=== PATIENT | female | born 1960 | race Caucasian/White ===

== ENCOUNTER 2021-03-19 15:45 | Emergency (ER) | payer OTHER, SELFPAY ==
[2021-03-19 15:55] VITALS: BP 119/63; PULSE 62; TEMP 37.3; O2SAT 98
--- NOTE | 2021-03-19 16:09 | ED.GENADUL_ITS ---
Discharge Plan Disposition Patient Disposition: HOME Condition: Good Discharge Details Clinical Impression: Foot laceration Primary Care Provider: Ryan Shell ED Provider: Suzanne Sorensen Home Meds and New Rx's Prescriptions: New cephalexin 500 mg capsule 500 mg PO QID 5 Days Qty: 20 RF: 0 Continued Prilosec OTC 20 mg tablet,delayed release (DR/EC) 20 mg PO DAILY RF: 0 multivitamin Capsule 1 cap PO DAILY RF: 0 naproxen sodium [Aleve] 220 mg capsule 220 mg PO BID PRNRF: 0 Discharge Instructions Instructions: Laceration (ED) Additional Instructions: Keep wound clean, dry, covered. Monitor for signs of infection including redness, warmth, drainage, increased pain, fevers/chills. If you develop any of these or other new/worsening symptoms please seek care urgently once again. Please follow up with primary care at the end of the week for wound evaluation. Antibiotics for prophylaxis. Tylenol and/or Ibuprofen as needed for discomfort. Rest, ice, elevate. Use post operative shoe until reevaluated. Wound should be evaluated for suture removal in 2 weeks. Referrals: Ryan Shell DO [Primary Care Provider] - Medical Decision Making <Suzanne Sorensen DO - Last Filed: 03/19/21 22:54> 1600 -- Patient initially seen by me in the waiting room. On my brief assessment of patient in the waiting room, she stated she dropped a chain saw on her foot when it kicked back and cut through her boot down to her foot. She has a 2 cm laceration on the medial aspect overlying her first metatarsal. There are no obvious foreign bodies. Bleeding controlled. No bony deformity. A L foot xray order placed. Boostrix ordered. Care transitioned to GIOVANNY Vega due to high acuity in the ED. Please see her note for additional details and final disposition. Medical Records Medical records reviewed: Yes I reviewed the patient's medical records. <GIOVANNY Painter - Last Filed: 03/20/21 01:37> Care transitioned to myself from Dr. Sorensen d/t acuity of the department. Please see her initial note regarding history, presentation and exam. In brief, patient is a pleasant 60-year-old female who was working with a chainsaw today when the chainsaw kicked cutting the left foot through her boot. She denies other injury the time of the incident. Denies any numbness or tingling. Tetanus is not up-to-date, will update this now. There was concern for potential bony involvement, x-ray was obtained. XR reviewed by radiologist: FINDINGS: Bones/joints: No acute fracture or focal osseous destruction is identified. There are no subluxations. The joint spaces are maintained without degenerative changes. Osseous mineralization is normal. There are no inflammatory osseous erosive changes. The plantar arch is maintained. There is a moderate plantar calcaneal spur. Soft tissues: There is soft tissue irregularity dorsal medial to the head of the 1st metatarsal, suggesting focal soft tissue laceration. No radiopaque soft tissue foreign bodies identified. IMPRESSION: 1. Findings suggest soft tissue laceration dorsal and medial to the 1st metatarsal head. 2. No radiopaque foreign body identified. 3. No radiographic evidence of acute osseous injury. Discussed findings with the patient. She and I discussed her/benefits as well as expected procedural steps associated with closure. She voiced understanding and wishes to proceed. Please see procedure note. Patient tolerated this well. Will update tetanus. wi ll place in postop shoe. RICE. Abx. Due to the nature of the wound, wound edges were loosely reapproximated using simple interrupted as well as horizontal mattresses sutures. Bulky dressing was applied. Patient will be placed in a postop shoe to help prevent any excess strain being placed on the wound. Strict return precautions were discussed. I have asked that she follow-up with primary care for wound check at the end of the week. All of her questions and concerns were addressed and she is in agreement this plan. HPI <Suzanne Sorensen, - Last Filed: 03/19/21 22:54> General Mode of arrival: ambulatory . Date/Time Provider Initiated Documentation: 03/19/21 16:08 . Limitations to Documentation: no limitations . Information obtained by: patient . HPI Narrative: Pt is a 60yo F who presents to the ED with complaint of left foot laceration after dropping a chain saw on her foot prior to arrival. Patient states she was cutting a tree when the chainsaw kicked back and hit her left foot. She states the chain saw cut through her shoe down into her foot. She is unsure of her tetanus status. She denies any other injuries. Related Data Home Medications Medication Instructions Recorded Confirmed multivitamin 1 cap PO DAILY 06/03/19 06/03/19 naproxen sodium 220 mg capsule 220 mg PO BID PRN 06/03/19 06/03/19 omeprazole magnesium 20 mg 20 mg PO DAILY 06/03/19 06/03/19 tablet,delayed release cephalexin 500 mg PO QID 5 Days #20 cap 03/19/21 Previous Rx's Medication Instructions Recorded cephalexin 500 mg PO QID 5 Days #20 cap 03/19/21 Allergies Allergy/AdvReac Type Severity Reaction Status Date / Time No Known Allergies Allergy Verified 05/28/19 10:39 General Stated Complaint: Laceration KG: 3 Review of Systems <Suzanne Sorensen DO - Last Filed: 03/19/21 22:54> All systems reviewed & are unremarkable except as noted in HPI and below PFSH <Suzanne Sorensen DO - Last Filed: 03/19/21 22:54> Medical History (Updated 03/19/21 @ 18:39 by GIOVANNY Painter) Ductal carcinoma in situ of right breast Medial meniscus tear Right Knee; surgical repair 06/25/2013 Primary malignant neoplasm of female breast Right sciatic nerve pain 2012 Surgical History (Updated 03/19/21 @ 16:10 by Suzanne Sorensen DO) H/O section History of knee surgery History of lumpectomy Family History (Updated 05/11/19 @ 10:51 by Solange Mueller) Aunt Breast cancer Brother Diabetes Father , Age 69 Dementia Paternal Grandfather , Age 64 Myocardial infarction Maternal Grandfather , Age 65 Myocardial infarction Maternal Grandmother , Age 50- Cancer No problems noted. 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 Do you need help understanding health information?: Rarely current occupation: Retired Sexually active: Yes Do you think of yourself as: straight/heterosexual Current gender identity: female What is your relationship status?: Panel score (0-1 are the most socially isolated patients): 1 What type of physical activity do you participate in: running Duration: 30-45 minutes/day Frequency: daily Exam <Suzanne Sorensen DO - Last Filed: 03/19/21 22:54> Const General: cooperative, healthy appearing and no acute distress HENMT Head: normal to inspection Mouth: oral mucosae normal Eyes General: appearance normal, both eyes and all related structures Neck Neck: normal visual inspection Resp Effort & Inspection: normal respiratory effort and able to speak in complete sentences Cardio Rate: regular rate Skin General skin exam: no rashes or lesions noted Neuro General: patient alert, patient awake and patient oriented x3 Motor: muscle tone normal throughout Extrem Ankle/foot/toe images: 1. Patient has a jagged laceration into the subcutaneous tissue along this area 3 cm in length. Along the dorsal aspect, I am concerned that there appears to be some missing tissue although wound edges are able to be reapproximated. No active bleeding. Sensation is intact distally. Brisk capillary refill. Good range of motion of the toe. Other: On brief exam of foot in waiting room, 2 cm straight laceration noted extending through dermis on medial aspect of foot overlying first metatarsal. No obvious foreign bodies noted. No other bony deformity noted. Bleeding controlled. Psych Appearance: grossly normal Affect: normal affect <GIOVANNY Painter - Last Filed: 03/20/21 01:37> Extrem Ankle/foot/toe images: 1. Patient has a jagged laceration into the subcutaneous tissue along this area 3 cm in length. Along the dorsal aspect, I am concerned that there appears to be some missing tissue although wound edges are able to be reapproximated. No active bleeding. Sensation is intact distally. Brisk capillary refill. Good range of motion of the toe. Course <Suzanne Sorensen DO - Last Filed: 03/19/21 22:54> Vital Signs Vital signs: Vital Signs Temperature 99.1 F 03/19/21 15:55 Pulse 62 03/19/21 15:55 Blood Pressure 119/63 03/19/21 15:55 Pulse Oximetry 98 03/19/21 15:55 Temperature 99.1 F 03/19/21 15:55 Temperature Source Temporal Artery Scan 03/19/21 15:55 Pulse 62 03/19/21 15:55 Blood Pressure 119/63 03/19/21 15:55 Blood Pressure Position Sitting 03/19/21 15:55 Pulse Oximetry 98 03/19/21 15:55 Oxygen Delivery Method Room Air 03/19/21 15:55 Oxygen Flow Rate 0 03/19/21 15:55 Pain Level 4 03/19/21 15:55 <GIOVANNY Painter - Last Filed: 03/20/21 01:37> Laceration Laceration 1: Site: lower extremity Side (If applicable): right Size (cm): 4 Description: irregular Depth: simple, single layer Local Anesthetic: Lidocaine 1% Amount of anesthesia used (mL): 4 Pre-repair: wound explored, irrigated extensively and deep structures intact Skin layer closed with: nylon Size (cm): 5-0 Number of sutures: 3 Technique: simple, interrupted and horizontal mattress
--- NOTE | 2021-03-19 17:00 | DI.RAD_ITS ---
Exam(s) XR FOOT LT COMPLETE EXAM: XR FOOT LT COMPLETE CLINICAL HISTORY: chainsaw to L foot, r/o fx/fb. TECHNIQUE: 2D digital imaging was performed. COMPARISON: No exams were available for comparison FINDINGS: BONES: No acute fracture is present. No bony destructive lesion is seen. JOINTS: No dislocation present. SOFT TISSUE: Gauze overlying the medial foot. Soft tissue defect near the head of the 1st metatarsal . No foreign body IMPRESSION: Medial soft tissue laceration. No fracture or foreign body. DATA REPOSITORY: RADIATION DOSE DELIVERED:
--- NOTE | 2021-03-19 17:42 | DI.VRAD_ITS ---
PROCEDURE INFORMATION: Exam: XR Left Foot Exam date and time: 03/19/2021 5:04 PM Age: 60 years old Clinical indication: Injury or trauma; Laceration; Left; Foreign body involvement not specified; Injury date: 03/19/21; Injury details: Chainsaw injury medial foot TECHNIQUE: Imaging protocol: XR Left foot. Views: 3 or more views. COMPARISON: No relevant prior studies available. FINDINGS: Bones/joints: No acute fracture or focal osseous destruction is identified. There are no subluxations. The joint spaces are maintained without degenerative changes. Osseous mineralization is normal. There are no inflammatory osseous erosive changes. The plantar arch is maintained. There is a moderate plantar calcaneal spur. Soft tissues: There is soft tissue irregularity dorsal medial to the head of the 1st metatarsal, suggesting focal soft tissue laceration. No radiopaque soft tissue foreign bodies identified. IMPRESSION: 1. Findings suggest soft tissue laceration dorsal and medial to the 1st metatarsal head. 2. No radiopaque foreign body identified. 3. No radiographic evidence of acute osseous injury. Dictated and Authenticated by: Marvin Cox MD. Ordering:MADALYN Palacios MD
[2021-03-19] MEDS: Lidocaine 1% Multi-Dose 50 ML VIAL IJ (18:57)
== END 2021-03-20 19:00 | disposition home or self-care (01) ==
PROVIDERS: Emergency Provider Physician Assistant; PCP Family Medicine
DX: S91.312A Laceration without foreign body, left foot, initial encounter (principal); W29.3XXA Contact with powered garden and outdoor hand tools and machinery, initial encounter
CPT/HCPCS: 12002; 90471; 99281; 73630

== ENCOUNTER 2021-04-02 10:06 | Emergency (ER) | payer OTHER, SELFPAY ==
[2021-04-02 10:09] VITALS: BP 127/64; PULSE 54; RESP 16; TEMP 37; O2SAT 100
--- NOTE | 2021-04-02 10:16 | W.ED.GENAD ---
Discharge Plan Disposition Patient Disposition: HOME Condition: Stable Discharge Details Clinical Impression: Visit for suture removal Primary Care Provider: Ryan Shell ED Provider: John Price Home Meds and New Rx's Prescriptions: Continued Prilosec OTC 20 mg tablet,delayed release (DR/EC) 20 mg PO DAILY RF: 0 multivitamin Capsule 1 cap PO DAILY RF: 0 naproxen sodium [Aleve] 220 mg capsule 220 mg PO BID PRNRF: 0 Discharge Instructions Additional Instructions: Sutures removed without difficulty. Keep the area clean and dry. Please watch for new or worsening symptoms and return to the ER for any concerns. Medical Decision Making 60-year-old female presents for suture removal. Sutures placed on 03-19-21. Laceration is well approximated and well-healing, no signs of secondary infection. Removed 3 sutures without difficulty. Patient tolerated well Medical Records Medical records reviewed: Yes I reviewed the patient's medical records. HPI General Mode of arrival: ambulatory. Date/Time Provider Initiated Documentation: 04/02/21 10:06. Limitations to Documentation: no limitations. Information obtained by: patient. HPI Narrative: This is a 60-year-old female presenting for evaluation to have sutures removed from her left foot. Patient states that she had the laceration repaired on 03-19-21. Has been doing well since then. Denies any pain, fever, discharge. Denies numbness, tingling, weakness. No additional questions or concerns at this time Related Data Home Medications Medication Instructions Recorded Confirmed multivitamin 1 cap PO DAILY 06/03/19 04/02/21 naproxen sodium 220 mg capsule 220 mg PO BID PRN 06/03/19 04/02/21 omeprazole magnesium 20 mg 20 mg PO DAILY 06/03/19 04/02/21 tablet,delayed release Allergies Allergy/AdvReac Type Severity Reaction Status Date / Time No Known Allergies Allergy Verified 05/28/19 10:39 General Stated Complaint: Recheck KG: 5 Review of Systems Constitutional Constitutional: Denies fever(s) Musculoskeletal Musculoskeletal: Denies arthralgias, Denies numbness, Denies stiffness and Denies tingling Integumentary/Breasts Skin/Breast: Denies erythema Neurologic Neurologic: Denies numbness and Denies tingling [facility] Medical History Ductal carcinoma in situ of right breast Medial meniscus tear Right Knee; surgical repair 06/25/2013 Primary malignant neoplasm of female breast Right sciatic nerve pain 2012 Surgical History H/O section History of knee surgery History of lumpectomy Family History Aunt Breast cancer Brother Diabetes Father , Age 69 Dementia Paternal Grandfather , Age 64 Myocardial infarction Maternal Grandfather , Age 65 Myocardial infarction Maternal Grandmother , Age 50- Cancer No problems noted. 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 Do you need help understanding health information?: Rarely current occupation: Retired Sexually active: Yes Do you think of yourself as: straight/heterosexual Current gender identity: female What is your relationship status?: Panel score (0-1 are the most socially isolated patients): 1 What type of physical activity do you participate in: running Duration: 30-45 minutes/day Frequency: daily Do you feel safe at home: Yes Do you feel safe in your relationship?: Yes Exam Const General: cooperative, healthy appearing, comfortable and no acute distress Orientation: alert and awake [facility] Head: normal to inspection, normocephalic and atraumatic Eyes General: appearance normal, both eyes and all related structures Conjunctivae: conjunctivae normal Neck Neck: normal visual inspection, trachea midline and supple Resp Effort & Inspection: normal respiratory effort and able to speak in complete sentences Cardio Rate: regular rate Rhythm: regular rhythm Skin General skin exam: no rashes or lesions noted Neuro General: patient alert, patient awake, moves all extremities and no focal motor deficits Cognition: normal cognition Speech: speech normal Gait: normal gait Sensory Exam: no sensory deficits noted Extrem Other: Left foot medial aspect over the first MTP joint there is a well-healing laceration approximated with 3 sutures. Neuro, vascular, tendon intact. No discharge. No discomfort to palpation. No evidence of secondary infection. Normal dorsalis pedal pulse and capillary refill Psych Appearance: grossly normal Mental Status: mental status grossly normal Course Vital Signs Vital signs: Vital Signs Temperature 37.0 C 04/02/21 10:09 Pulse 54 L 04/02/21 10:09 Respiratory Rate 16 04/02/21 10:09 Blood Pressure 127/64 04/02/21 10:09 Pulse Oximetry 100 04/02/21 10:09 Temperature 37.0 C 04/02/21 10:09 Temperature Source Temporal Artery Scan 04/02/21 10:09 Pulse 54 L 04/02/21 10:09 Respiratory Rate 16 04/02/21 10:09 Respiratory Effort 04/02/21 10:13 Blood Pressure 127/64 04/02/21 10:09 Blood Pressure Position Sitting 04/02/21 10:09 Pulse Oximetry 100 04/02/21 10:09 Oxygen Delivery Method Room Air 04/02/21 10:09 Oxygen Flow Rate 0 04/02/21 10:09 Pain Level 3 04/02/21 10:09
== END 2021-04-02 10:35 | disposition home or self-care (01) ==
PROVIDERS: Emergency Provider Physician Assistant; PCP Family Medicine
DX: S91.312D Laceration without foreign body, left foot, subsequent encounter (principal); W29.3XXD Contact with powered garden and outdoor hand tools and machinery, subsequent encounter; Z48.02 Encounter for removal of sutures

== ENCOUNTER 2023-03-14 15:25 | Outpatient (REF) | payer OTHER, SELFPAY | END 2023-03-14 15:26 | disposition home or self-care (01) | LOC: LBN 15:25 | PROVIDERS: PCP Family Medicine; Visit Provider Nurse Practitioner Family | DX: L08.89 Other specified local infections of the skin and subcutaneous tissue; W54.0XXD Bitten by dog, subsequent encounter; S81.031D Puncture wound without foreign body, right knee, subsequent encounter | CPT/HCPCS: 87077; 87070; 87205 ==

== ENCOUNTER 2023-03-17 12:26 | Emergency (ER) | payer OTHER, SELFPAY ==
[2023-03-17 12:32] VITALS: BP 149/64; PULSE 42; RESP 14; O2SAT 100
--- NOTE | 2023-03-17 12:44 | ED.GENADUL_ITS ---
Discharge Plan Disposition Patient Disposition: Home Condition: Good Discharge Details Clinical Impression: Rabies, need for prophylactic vaccination against Primary Care Provider: Ryan Shell ED Provider: Klaudia Maddox Home Meds and New Rx's Prescriptions: Continued multivitamin Capsule 1 cap PO DAILY naproxen sodium [Aleve] 220 mg capsule 220 mg PO BID PRN amoxicillin-pot clavulanate 875-125 mg tablet 1 tab PO BID 10 Days Qty: 20 0RF Rx Instructions: Take with meal. Take 1 pill every 12 hour mupirocin 2 % ointment 1 applic topical BID Qty: 15 0RF Rx Instructions: apply twice daily for 7 days Discharge Instructions Instructions: Rabies Vaccine (By injection), Rabies Immune Globulin (By injection) Additional Instructions: Return to the infusion center at the hospital as instructed for your subsequent rabies vaccines. Return to ED for any questions or concerns. Return also if the area behind your knee does not continue to improve. Medical Decision Making The rabies series is gone from 5 shots down to 4 and this was confirmed on the CDC website. No globulin will be given just once. All of this was discussed with the patient. She was set up to go to the infusion area for her subsequent shots. She will return for fever, spreading redness, any other concerns. HPI General Date/Time Provider Initiated Documentation: 03/17/23 12:39 . HPI Narrative: Patient reports that she was jogging last when a dog ran out and bit her behind her knee. She went to urgent care and was placed on Augmentin. She had a recheck this morning and was referred to the ED for rabies vaccination. Patient states that she is able to move her knee without difficulty and it does not appear that the joint was penetrated. She is a single decent sized puncture wound in the crease of her right knee. There is minimal erythema and no warmth in the area. She says she is over the whole thing and just wants to get her vaccination and move on. She only found out this morning that the dog had not had a complete series of rabies shots. She was told that the dog is being put down. It is mild at this time. She is little bit sore. Pain does not radiate anywhere. She has had no fever, shaking chills, difficulty bending her knee, red streaks, or other concerns. Related Data Home Medications Medication Instructions Recorded Confirmed multivitamin 1 cap PO DAILY 06/03/19 03/17/23 naproxen sodium 220 mg capsule 220 mg PO BID PRN 06/03/19 03/17/23 (Aleve) amoxicillin 875 mg-potassium 1 tab PO BID 10 days #20 tabs 03/14/23 03/17/23 clavulanate 125 mg tablet mupirocin 2 % topical ointment 1 applic topical BID #15 grams 03/17/23 03/17/23 Previous Rx's Medication Instructions Recorded amoxicillin 875 mg-potassium 1 tab PO BID 10 days #20 tabs 03/14/23 clavulanate 125 mg tablet mupirocin 2 % topical ointment 1 applic topical BID #15 grams 03/17/23 Allergies Allergy/AdvReac Type Severity Reaction Status Date / Time No Known Allergies Allergy Verified 03/17/23 12:37 General Stated Complaint: AnimalBite KG: 3 Review of Systems Musculoskeletal Musculoskeletal: Reports other (Bite behind right knee) Integumentary/Breasts Skin/Breast: Reports other (No warmth or marked erythema behind right knee) Neurologic Neurologic: Reports other (No numbness) PFSH All Active Problems Rabies, need for prophylactic vaccination against (Acute) Foot laceration (Acute) Visit for suture removal (Acute) Primary malignant neoplasm of female breast (Acute) Ductal carcinoma in situ of right breast (Acute) Medical History Medial meniscus tear Right Knee; surgical repair 06/25/2013 Right sciatic nerve pain 2012 Surgical History H/O section History of knee surgery History of lumpectomy Family History Aunt Breast cancer Brother Diabetes Father , Age 69 Dementia Paternal Grandfather , Age 64 Myocardial infarction Maternal Grandfather , Age 65 Myocardial infarction Maternal Grandmother , Age 50- Cancer No problems noted. 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 Do you need help understanding health information?: Rarely current occupation: Retired Sexually active: Yes Do you think of yourself as: straight/heterosexual Current gender identity: female What is your relationship status?: Panel score (0-1 are the most socially isolated patients): 1 What type of physical activity do you participate in: running Duration: 30-45 minutes/day Frequency: daily Do you feel safe at home: Yes Do you feel safe in your relationship?: Yes Exam Const General: healthy appearing, no acute distress, well developed and well groomed Orientation: oriented x3 HENMT Head: normocephalic and atraumatic Eyes Conjunctivae: conjunctivae normal Neck Neck: supple Resp Effort & Inspection: normal respiratory effort Skin General skin exam: other (PWD) Trauma: puncture (Behind right knee) Extrem Right lower extremity: full ROM and knee (PW posteriorly 0.5 cm, no warmth or pronounced erythema, FROM) Course Vital Signs Vital signs: Vital Signs Pulse 42 L 03/17/23 12:32 Respiratory Rate 14 03/17/23 12:32 Blood Pressure 149/64 H 03/17/23 12:32 Pulse Oximetry 100 03/17/23 12:32 Pulse 42 L 03/17/23 12:32 Respiratory Rate 14 03/17/23 12:32 Respiratory Effort Normal 03/17/23 12:37 Blood Pressure 149/64 H 03/17/23 12:32 Blood Pressure Position Supine 03/17/23 12:32 Pulse Oximetry 100 03/17/23 12:32 Oxygen Delivery Method Room Air 03/17/23 12:32 Oxygen Flow Rate 0 03/17/23 12:32 Pain Level 5 03/17/23 12:32
--- NOTE | 2023-03-17 12:57 | NUR.NOTE ---
Nursing Note: Faxed to Infusion, rabies vaccine physician order.
[2023-03-17] MEDS: Rabies Immune Globulin 1,500 UNIT/5 ML VIAL 1320 UNITS IM (13:30)
--- NOTE | 2023-03-17 13:39 | NUR.NOTE ---
Addendum entered by Iris Leiva 03/18/23 09:36: Faxed to Infusion the new dates for the vaccinations. Addendum entered by Iris Leiva 03/17/23 13:50: March 20. March 24. March 31. Original Note: Nursing Note: Rabies vaccine orders: day 3 March 19, day 7 March 23 and day 14 March 30. Copy given to pt.
== END 2023-03-17 14:01 | disposition home or self-care (01) ==
PROVIDERS: Emergency Provider Emergency Medicine; PCP Family Medicine
DX: Z20.3 Contact with and (suspected) exposure to rabies (principal)
CPT/HCPCS: 90471; 99282; 90675

== ENCOUNTER 2023-03-18 01:02 | Outpatient (CLI) | payer OTHER, SELFPAY ==
--- NOTE | 2023-03-18 07:45 | DI.CT_ITS ---
Exam(s) CT LOWER EXTREMITY RT W EXAM: CT LOWER EXTREMITY RT W CLINICAL HISTORY: evaluate abscess/pathology,DOG BITE, [id number].[id number]. TECHNIQUE: Imaging Protocol: Axial computed tomography images with coronal and sagittal reformatted images were created and reviewed. CONTRAST MATERIAL: Intravenous: Omnipaque 350 Contrast volume:100 mL contrast route:IV COMPARISON: None FINDINGS: Area scanned was behind the knee. Apparent recently dog bite in this location. There is an area of indrawing of the skin which is probably a laceration in this region and there is subcutaneous air as well as small focus of air-gas slightly deeper than subcutaneous, 1.4 cm in from the skin surface. There is soft tissue induration in this region and overlying skin thickening. The re is no formed ring-enhancing abscess. Arterial vascular structures including the distal SFA, popliteal artery, tibioperoneal trunk and prox imal runoff vessels of the calf are patent. IMPRESSION: Inflammatory changes with subcutaneous streaking and cellulitis pattern. Some air is seen deep to th e subcutaneous tissues. No ring enhancing abscess seen at this time.. No significant vascular injury. RADIATION DOSE DELIVERED: 351.46mGy.cm Total DLP DATA REPOSITORY: All CT scans at this facility are submitted to the National Radiology Data Registry (NRDR) Dose Index Registry (DIR) with the [employer] (ACR). RADIATION OPTIMIZATION: All CT scans at this facility use at least one of these dose optimization te chniques: automated exposure control; mA and/or kV adjustment per patient size (includes targeted exa ms where dose is matched to clinical indication); or iterative reconstruction.
[2023-03-18] MEDS: Omnipaque 350 MG/ML 100 ML BTL IJ (12:23)
[2023-03-18] MEDS: Normal Saline - Diluent 50 ML VIAL IJ (12:24)
== END 2023-03-18 01:22 ==
LOC: DI 01:03
PROVIDERS: PCP Family Medicine; Visit Provider Nurse Practitioner Family
DX: W54.0XXA Bitten by dog, initial encounter (principal); L08.89 Other specified local infections of the skin and subcutaneous tissue
CPT/HCPCS: 73701; 82565; J3490

== ENCOUNTER 2023-03-31 03:54 | Outpatient (RCR) | payer OTHER, SELFPAY | END 2023-04-07 23:59 | disposition home or self-care (01) | LOC: INF 03:54 | PROVIDERS: PCP Family Medicine; Visit Provider Nurse Practitioner | DX: Z20.3 Contact with and (suspected) exposure to rabies (principal) | CPT/HCPCS: 90471; 96372; 90675 ==

== ENCOUNTER 2024-03-16 19:47 | Emergency (ER) | payer OTHER, SELFPAY ==
[2024-03-16 19:51] VITALS: BP 126/67; PULSE 50; RESP 16; TEMP 36.6; O2SAT 98
--- NOTE | 2024-03-16 20:15 | DI.RAD_ITS ---
Exam(s) XR TIB/FIB RT EXAM: XR TIB/FIB RT CLINICAL HISTORY: lateral leg injury, swelling. TECHNIQUE: 2D digital imaging was performed. Two views. COMPARISON: No exams were available for comparison FINDINGS: BONES: Nondisplaced fracture extending obliquely through the lateral malleolus the level of the ankle mortise. No ankle mortise widening. No tibial fracture identified. Degenerative changes noted at the knee. Calcaneal spurs. SOFT TISSUE: Normal. IMPRESSION: Nondisplaced fracture of the lateral malleolus. No ankle mortise widening. DATA REPOSITORY: RADIATION DOSE DELIVERED:
--- NOTE | 2024-03-16 21:30 | DI.VRAD_ITS ---
PROCEDURE INFORMATION: Exam: XR Right Tibia and Fibula Exam date and time: 03/16/2024 8:37 PM Age: 63 years old Clinical indication: Injury or trauma; Fall; Blunt trauma; Lower leg; Right; Injury date: 03/16/24; Injury details: Lat leg injury, swelling; Prior surgery; Surgery date: 6+ months; Surgery type: Meniscus repair TECHNIQUE: Imaging protocol: Radiologic exam of the right tibia and fibula. Views: 2 views. COMPARISON: CT LOWER EXTREMITY RT W 03/18/2023 12:12 PM FINDINGS: Bones/joints: An oblique fracture is present at the distal fibula, at the level of the ankle mortise. There is no displacement or angulation. The distal tibia appears intact. The proximal tibia and fibula are intact. Osteophytes and enthesophytes are noted at the patella. Soft tissues: Unremarkable. IMPRESSION: Distal fibula fracture. Dictated and Authenticated by: Jacques Bland MD. Ordering:REGLA Morris MD
[2024-03-16 21:53] VITALS: BP 120/68; PULSE 88; RESP 16; O2SAT 98
--- NOTE | 2024-03-16 22:56 | W.ED.GENAD ---
Discharge Plan Disposition Patient Disposition: Home Condition: Stable Discharge Details Clinical Impression: Fibula fracture Primary Care Provider: Ryan Shell ED Provider: Alexandra Butler Home Meds and New Rx's Prescriptions: New oxycodone 5 mg capsule 5 mg PO Q8H PRNQty: 6 0RF Continued multivitamin Capsule 1 cap PO DAILY naproxen sodium [Aleve] 220 mg capsule 220 mg PO BID PRN Discharge Instructions Instructions: Lower Leg Fracture ED Additional Instructions: Toe-touch weightbearing only, crutches with ambulation, elevate is much as possible take ibuprofen as needed for pain Tylenol for breakthrough pain Giving you a small prescription for oxycodone, take this sparingly as this can be addictive Return earlier should you have new or worsening complaints including calf pain or swelling, diminished sensation, chest pain or shortness of breath please follow-up with orthopedics to schedule an appointment for reassessment Referrals: Aamir Diaz MD [ [facility]YSICIAN] - 2 days HPI General Date/Time Provider Initiated Documentation: 03/16/24 20:10. HPI Narrative: This [place] 63 female presents with right lower extremity pain. Patient states she was run into by a dog and has swelling and pain to her right lateral lower leg. This happened just prior to arrival. Denies any additional falls or injuries. Has been able to ambulate with discomfort since the time. Related Data Home Medications Medication Instructions Recorded Confirmed multivitamin 1 cap PO DAILY 06/03/19 03/16/24 naproxen sodium 220 mg capsule 220 mg PO BID PRN 06/03/19 03/16/24 (Aleve) oxycodone 5 mg capsule 5 mg PO Q8H PRN #6 caps 03/16/24 Previous Rx's Medication Instructions Recorded oxycodone 5 mg capsule 5 mg PO Q8H PRN #6 caps 03/16/24 Allergies Allergy/AdvReac Type Severity Reaction Status Date / Time No Known Allergies Allergy Verified 03/16/24 19:51 General Stated Complaint: Orthopedic KG: 4 Exam Narrative Exam Narrative: Right lower extremity, tenderness and swelling laterally, neurovascularly intact to lower extremity, no actual ankle tenderness or knee tenderness appreciated on exam, no bruising Course Vital Signs Vital signs: Vital Signs Temperature 36.6 C 03/16/24 19:51 Pulse 50 L 03/16/24 19:51 Respiratory Rate 16 03/16/24 19:51 Blood Pressure 126/67 03/16/24 19:51 Pulse Oximetry 98 03/16/24 19:51 Temperature 36.6 C 03/16/24 19:51 Pulse 88 03/16/24 21:53 Respiratory Rate 16 03/16/24 21:53 Blood Pressure 120/68 03/16/24 21:53 Blood Pressure Position Supine 03/16/24 19:51 Pulse Oximetry 98 03/16/24 21:53 Pain Level 3 03/16/24 21:53 Procedures Orthopedic Splinting/Casting Injury #1: Side: right Lower Extremity Injury Location: lower leg Lower Extremity Immobilizer: posterior splint and stirrup splint Other Orthopedic Equipment: crutches Additional Comments: Neurovascularly intact pre and post procedure Medical Decision Making 60-year-old female presenting with injury to right lower extremity. Fibular fracture noted on x-ray, pending radiology interpretation officially. I like to place patient in a boot with crutches, however these are not available at this time. Therefore Ortho-Glass was used to make a stirrup and posterior splint for patient. Patient will be referred to orthopedics, small amount of opiate analgesia was prescribed. Motrin and Tylenol encouraged. Placed on referral list for follow-up and return precautions reviewed. 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
== END 2024-03-16 21:42 | disposition home or self-care (01) ==
PROVIDERS: Emergency Provider Physician Assistant; PCP Family Medicine; Visit Provider Physician Assistant
DX: S82.64XA Nondisplaced fracture of lateral malleolus of right fibula, initial encounter for closed fracture (principal); W54.1XXA Struck by dog, initial encounter
CPT/HCPCS: 27786; 99283; 73590

== ENCOUNTER 2024-03-24 11:35 | Outpatient (CLI) | payer OTHER, SELFPAY ==
--- NOTE | 2024-03-24 10:30 | DI.RAD_ITS ---
Exam(s) XR ANKLE RT COMPLETE EXAM: XR ANKLE RT COMPLETE CLINICAL HISTORY: F/U FRACTURE. TECHNIQUE: 2D digital imaging was performed. COMPARISON: CR,XR XR TIB/FIB RT from 03/16/2024 FINDINGS: 3 views Again noted is the recently described oblique fracture through the lateral malleolus at the level the ankle mortise. There is mild displacement. Minimal widening of the ankle mortise noted. Talar dom e appears unremarkable. Base of the 5th metatarsal unremarkable. Large inferior calcaneal spur note d. IMPRESSION: As above. DATA REPOSITORY: RADIATION DOSE DELIVERED:
== END 2024-03-24 11:36 | disposition home or self-care (01) ==
LOC: DIORS 11:35
PROVIDERS: PCP Family Medicine; Visit Provider Student in an Organized Health Care Education/Training Program
DX: S82.401A Unspecified fracture of shaft of right fibula, initial encounter for closed fracture (principal); M77.31 Calcaneal spur, right foot
CPT/HCPCS: 73610

== ENCOUNTER 2024-04-07 14:50 | Outpatient (CLI) | payer OTHER, SELFPAY ==
--- NOTE | 2024-04-07 14:47 | DI.RAD_ITS ---
Exam(s) XR ANKLE RT COMPLETE EXAM: XR ANKLE RT COMPLETE CLINICAL HISTORY: F/U FRACTURE. TECHNIQUE: 2D digital imaging was performed of the right ankle. Three images were obtained. AP, la teral and oblique views were obtained. COMPARISON: CR XR ANKLE RT COMPLETE from 03/24/2024 FINDINGS: BONES: There is 2.4 cm lateral displacement of the distal fibular fracture. This appears similar com pared to the prior examination. No new fractures identified. No bony destructive lesion is seen. Th ere is a large plantar calcaneal spur. JOINTS: The ankle mortise appears stable. SOFT TISSUE: Normal. IMPRESSION: Laterally displaced distal right fibular fracture. DATA REPOSITORY: RADIATION DOSE DELIVERED:
== END 2024-04-07 14:51 | disposition home or self-care (01) ==
LOC: DIORS 14:50
PROVIDERS: PCP Family Medicine; Visit Provider Student in an Organized Health Care Education/Training Program
DX: S82.831A Other fracture of upper and lower end of right fibula, initial encounter for closed fracture (principal)
CPT/HCPCS: 73610

== ENCOUNTER 2024-04-27 15:47 | Outpatient (CLI) | payer OTHER, SELFPAY ==
--- NOTE | 2024-04-27 09:00 | DI.RAD_ITS ---
Exam(s) XR ANKLE RT COMPLETE EXAM: XR ANKLE RT COMPLETE CLINICAL HISTORY: F/U FRACTURE. TECHNIQUE: 2D digital imaging was performed. 4 views. COMPARISON: CR XR ANKLE RT COMPLETE from 04/07/2024 FINDINGS: BONES: Stable alignment distal fibular fracture which shows some healing when compared with the prior exam. No bony destructive lesion is seen. Prominent plantar calcaneal spurring N noted. JOINTS: Mild widening of the medial ankle mortise. SOFT TISSUE: Normal. IMPRESSION: continued healing of lateral malleolar fracture. DATA REPOSITORY: RADIATION DOSE DELIVERED:
== END 2024-04-27 15:48 | disposition home or self-care (01) ==
LOC: DIORS 15:47
PROVIDERS: PCP Family Medicine; Visit Provider Student in an Organized Health Care Education/Training Program
DX: S82.831D Other fracture of upper and lower end of right fibula, subsequent encounter for closed fracture with routine healing (principal); X58.XXXD Exposure to other specified factors, subsequent encounter
CPT/HCPCS: 73610

== ENCOUNTER 2025-03-03 15:17 | Outpatient (CLI) | payer OTHER, SELFPAY ==
--- NOTE | 2025-03-03 14:45 | DI.RAD_ITS ---
Exam(s) XR WRIST LT COMP NAVICULAR EXAM: XR WRIST LT COMP NAVICULAR CLINICAL HISTORY: LEFT WRIST PAIN. TECHNIQUE: 2D digital imaging was performed of the left wrist. Four images were obtained. Scaphoid, PA, oblique and lateral views were obtained. COMPARISON: No exams were available for comparison FINDINGS: BONES: No acute fracture is present. No bony destructive lesion is seen. JOINTS: The scapholunate interval is 3 mm to 3.1 mm. The findings are concerning for scapholunate dissociation. SOFT TISSUE: Normal. IMPRESSION: Widening of the scapholunate interval suspicious for scapholunate dissociation. MRI of the wrist should be considered for further evaluation. DATA REPOSITORY: RADIATION DOSE DELIVERED:
== END 2025-03-03 15:18 | disposition home or self-care (01) ==
LOC: DIORS 15:20
PROVIDERS: PCP Family Medicine; Visit Provider Physician Assistant
DX: M25.532 Pain in left wrist (principal); S63.512A Sprain of carpal joint of left wrist, initial encounter
CPT/HCPCS: 73110

== ENCOUNTER 2025-06-19 08:57 | Emergency (ER) | payer OTHER, SELFPAY ==
[2025-06-19 08:58] VITALS: BP 135/69; PULSE 56; RESP 15; TEMP 36.6; O2SAT 100
--- NOTE | 2025-06-19 09:08 | W.ED.GENAD ---
Discharge Plan Disposition Patient Disposition: Home Discharge Details Clinical Impression: Mallet deformity of right middle finger Primary Care Provider: None,None ED Provider: Marvin Burt Home Meds and New Rx's Prescriptions: Continued multivitamin Capsule 1 cap PO DAILY Discharge Instructions Additional Instructions: You are seen in the emergency department for your finger pain. Your x-ray showed no sign of any fractures or dislocations. You likely have damaged one of the tendons in your right long finger. Please wear this splint until you are seen by the orthopedic team in the next 7 to 10 days. For your pain please take medications as follows: 1. Take acetaminophen (Tylenol), 1,000 mg (two 500 mg tabs) every 6 hours [2. Take ibuprofen (Advil), 400 mg every 6 hours.] Referrals: [facility] [Provider Group] Discharge Data Discharge Date/Time-TO BE ENTERED AT DEPARTURE: 06/19/25 10:27 HPI General Date/Time Provider Initiated Documentation: 06/19/25 09:08. HPI Narrative: MDM This is an overall quite well-appearing normothermic and not tachycardic 64-year-old left-hand dominant female with decreased extension ability in her right long finger concerning for the possibility of mallet finger or avulsion fracture for which she will undergo plain films. She has no pain out of proportion to suggest necrotizing soft tissue infection. No rash to hands to suggest zoster. No fevers nor tenderness with percussion nor fusiform swelling so I am not suspicious for flexor tenosynovitis. No significant signs of trauma to finger so I am not suspicious for subungual hematoma. No significant swelling to suggest gout. No snuffbox tenderness to suggest scaphoid fracture. No significant numbness nor tingling to suggest carpal tunnel syndrome. No obvious signs of dislocation however will obtain x-ray. No hyperflexion of the PIP nor hyperextension of the DIP to suggest boutonniere deformity. Patient can flex her DIP joint so I am not suspicious for jersey finger. 10:23 AM Radiographs with no acute osseous abnormalities. No dislocations or fractures. Patient was placed in a finger splint in extension at the DIP joint of her right long finger. I have asked health catalyst unit operator Iris to have the patient seen in the next 7 to 10 days by the orthopedic team. Patient was hoping to leave town this week on Friday to go to [place]. I provided her with a phone number for orthopedics and advised her to call the orthopedic team for follow-up. We discussed return indications including increasing pain any color changes in her fingers or any other concerns. She understood her return indications and was discharged with an empiric trial of expectant outpatient management. HPI This is a [id number] patient with no significant medical history presenting with right middle finger pain. The patient reports experiencing pain in her right middle finger, which began around noon on 06/18/2025 while she was preparing to travel south. The onset of the pain was sudden, occurring after she removed her work glove. She noticed an abnormal appearance in her finger, which seemed to be pointing sideways at the top. Despite attempts to recall any specific incident that could have caused this, she cannot identify a clear cause. She applied ice packs and taped the finger, hoping it would improve. This morning, she observed that while the pain has subsided, the finger still appears abnormal and does not fully straighten on its own, although she can move it. She is left-handed and reports no fever, nausea, or vomiting. She generally feels well, with no known thyroid issues. Patient arrives with katerine taped long finger to index finger. The patient has not been diagnosed with carpal tunnel syndrome but experiences numbness in her hand, particularly during sleep. Exam General: Well-appearing in no acute distress speaking in complete sentences. Head: Normocephalic, atraumatic. Eye: Extraocular eye movements intact. No conjunctival injection. No scleral icterus. Ear, nose, mouth, throat: Grossly normal inspection. Normal voice, handling secretions normally. Neck: Trachea midline. Cardiovascular: Well-perfused distal extremities. Respiratory: Nonlabored respiration. Gastrointestinal: Nondistended abdomen. Musculoskeletal: Right hand exam Right hand warm well-perfused. 2+ radial pulse. Cap refill less than 2 seconds right fingertips. Sensation motor function intact in the right hand across the radial, median, and ulnar nerve distributions. Right long finger with intact flexion and extension at the MCP and PIP joints. Right long finger DIP joint with intact flexion slightly decreased extension. No snuffbox tenderness. Skin: Normal for age and race, grossly normal temperature and turgor. No acute rash. Neurologic: Alert and appropriate, no apparent acute deficits. GCS 15. Psychiatric: Mood and manner are appropriate. Grooming and personal hygiene are appropriate. Related Data Home Medications ?Medication ?Instructions ?Recorded ?Confirmed multivitamin 1 cap PO DAILY 06/03/19 06/19/25 Allergies Allergy/AdvReac Type Severity Reaction Status Date / Time No Known Allergies Allergy Verified 06/19/25 09:03 General Stated Complaint: Orthopedic KG: 4 Course Vital Signs Vital signs: Vital Signs Pulse 56 L 06/19/25 08:58 Respiratory Rate 15 06/19/25 08:58 Blood Pressure 135/69 06/19/25 08:58 Pulse Oximetry 100 06/19/25 08:58 Pulse 56 L 06/19/25 08:58 Respiratory Rate 15 06/19/25 08:58 Blood Pressure 135/69 06/19/25 08:58 Blood Pressure Position Sitting 06/19/25 08:58 Pulse Oximetry 100 06/19/25 08:58 Oxygen Delivery Method Room Air 06/19/25 08:58 Oxygen Flow Rate 0 06/19/25 08:58 Pain Level 2 06/19/25 08:58 Procedure Orthopedic Splinting/Casting Date of Procedure: 06/19/25 Time of procedure: 10:28 Provider that performed the procedure: Marvin Burt Patient Consented: Verbally Upper Extremity Injury Location: finger (Right long finger) Upper Extremity Immobilizer: finger (other) (Stack splint size 3) Weight bearing status: non-weight bearing as tolerated (Nonweightbearing right long finger) Procedure Description/Note: Placed in finger splint in full extension. 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
--- NOTE | 2025-06-19 09:15 | DI.RAD_ITS ---
Exam(s) XR FINGER RT MIDDLE EXAM: XR FINGER RT MIDDLE CLINICAL HISTORY: Decreased extension DIP joint long finger. TECHNIQUE: 2D digital imaging was performed of the right finger. Three views were obtained. PA/AP, oblique, and lateral views were obtained. COMPARISON: No exams were available for comparison FINDINGS: BONES: No acute fracture is present. No bony destructive lesion is seen. JOINTS: No dislocation present. The joint spaces are well maintained without evidence of arthrosis. SOFT TISSUE: Normal. IMPRESSION: Unremarkable examination. No acute abnormality. DATA REPOSITORY: RADIATION DOSE DELIVERED:
[2025-06-19 10:25] VITALS: BP 137/62; PULSE 51; RESP 16; O2SAT 100
== END 2025-06-19 10:27 | disposition home or self-care (01) ==
PROVIDERS: Emergency Provider Emergency Medicine
DX: M20.011 Mallet finger of right finger(s) (principal)
CPT/HCPCS: 99283 ×2; 29130; 73140